=== PATIENT | male | born 1995 | race African-American/Black ===

== ENCOUNTER 2021-08-15 20:46 | Inpatient (IN) | payer OTHER ==
[~2021-08-15] VITALS: Ht 182.9 cm; Wt 97.1 kg
[2021-08-15 21:52] LABS: HEMATOCRIT 46.1 % (42.0-52.0); HEMOGLOBIN 15.7 g/dl (13.5-17.5); MEAN CORPUSCULAR HEMOGLOBIN 30.3 pg (27.0-33.0); MEAN CORPUSCULAR HGB CONC 34.1 g/dl (32.0-36.5); PLATELET COUNT, AUTOMATED 242 10^3/uL (150-450); RED BLOOD COUNT 5.18 10^6/uL (4.30-6.10)
[2021-08-15 22:10] LABS: AMPHETAMINES LEVEL URINE NEGATIVE (NEGATIVE); BARBITURATES URINE NEGATIVE (NEGATIVE); BENZODIAZEPINES URINE NEGATIVE (NEGATIVE); CANNABINOIDS URINE NEGATIVE (NEGATIVE); COCAINE METABOLITE URINE NEGATIVE (NEGATIVE); METHADONE URINE NEGATIVE (NEGATIVE); OPIATES URINE NEGATIVE (NEGATIVE); PHENCYCLIDINE URINE NEGATIVE (NEGATIVE)
[2021-08-15 22:23] LABS: RSV AMPLIFICATION NEGATIVE (NEGATIVE)
[2021-08-15 22:36] LABS: ACETAMINOPHEN LEVEL < 2.0 UG/ML (10.0-30.0); ALBUMIN 4.4 GM/DL (3.2-5.2); ALT/SGPT 26 U/L (12-78); BILIRUBIN,DIRECT 0.3 MG/DL (0.0-0.2); BILIRUBIN,TOTAL 1.2 MG/DL (0.2-1.0); BLOOD UREA NITROGEN 7 MG/DL (7-18); CALCIUM LEVEL 9.4 MG/DL (8.5-10.1); CARBON DIOXIDE LEVEL 29 MEQ/L (21-32); CHLORIDE LEVEL 107 MEQ/L (98-107); CREATININE FOR GFR 1.26 MG/DL (0.70-1.30); ETHYL ALCOHOL (ETHANOL) 0.003 % (0.000-0.010); GLOMERULAR FILTRATION RATE > 60.0 (>60); GLUCOSE, FASTING 74 MG/DL (70-100); SALICYLATE LEVEL < 1.7 MG/DL (5.0-30.0); SODIUM LEVEL 141 MEQ/L (136-145); THYROID STIMULATING HORMONE 0.461 uIU/ML (0.358-3.740); TOTAL PROTEIN 7.7 GM/DL (6.4-8.2)
[2021-08-16] MEDS ORDERED: HOME MED LIST COMPLETE! XX SCH (00:35)
[2021-08-16] MEDS ORDERED: NICOTINE 21MG/24HR 1 EA TRANSDERMAL TD ONE (14:10)
[2021-08-16] MEDS ORDERED: diphenhydrAMINE 25MG CAP PO ONE (22:05)
[2021-08-17] MEDS ORDERED: diphenhydrAMINE 25MG CAP PO PRN (13:05)
[2021-08-17] MEDS ORDERED: traZODone 50 MG TAB PO PRN (13:05)
[2021-08-17] MEDS ORDERED: MAALOX 30 ML SUSP *UDC PO PRN (13:05)
[2021-08-17] MEDS ORDERED: IBUPROFEN 400MG TAB PO PRN (13:05)
[2021-08-17] MEDS: NICOTINE 21MG/24HR 1 EA TRANSDERMAL TD SCH (14:05)
[2021-08-17 16:39] VITALS: BP 133/77
[2021-08-18 06:31] VITALS: BP 132/79
[2021-08-18] MEDS: NICOTINE 21MG/24HR 1 EA TRANSDERMAL TD SCH (09:52)
[2021-08-18] MEDS: buPROPion (WELLBUTRIN SR) 100 MG SR TAB PO SCH (13:16)
[2021-08-18 18:05] VITALS: BP 138/83
[2021-08-18] MEDS ORDERED: RAMELTEON 8 MG TAB (ROZEREM) PO PRN (18:30)
[2021-08-19 06:36] VITALS: BP 117/62
[2021-08-19] MEDS: NICOTINE 21MG/24HR 1 EA TRANSDERMAL TD SCH (08:08)
[2021-08-19] MEDS: buPROPion (WELLBUTRIN SR) 100 MG SR TAB PO SCH (08:08)
[2021-08-19] MEDS ORDERED: NICO21PAT TD (08:56)
[2021-08-19] MEDS ORDERED: RAME8TAB2 PO (08:56)
[2021-08-19] MEDS ORDERED: BUPR10TASR PO (08:56)
== END 2021-08-19 13:07 | disposition home or self-care (01) | DRG 881 ==
LOC: M ED 20:46 → M ED INP 08-17 13:02 → M PSY 08-17 16:41
PROVIDERS: ADMIT Student in an Organized Health Care Education/Training Program; ATTEND Student in an Organized Health Care Education/Training Program
DX: F32.A Depression, unspecified (principal); R45.851 Suicidal ideations; F17.210 Nicotine dependence, cigarettes, uncomplicated; Z63.5 Disruption of family by separation and divorce